=== PATIENT | male | born 1950 | race Caucasian/White ===

== ENCOUNTER 2021-04-07 07:52 | Day surgery (SDC) | payer MEDICARE ==
[~2021-04-07] VITALS: Ht 162.6 cm; Wt 86.2 kg
[2021-04-07] MEDS ORDERED: DEXAMETHASONE SOD PHOSPHATE 4 MG/ML VIAL ONE (08:00)
[2021-04-07] MEDS ORDERED: LIDOCAINE 2%, 20 ML MDV ONE (08:00)
[2021-04-07] MEDS ORDERED: BUPIVACAINE /PF 0.25% 30 ML VIAL INJ ONE (08:00)
[2021-04-07] MEDS ORDERED: IOPAMIDOL 50 ML VIAL IV ONE (08:00)
[2021-04-07] MEDS ORDERED: MIDAZOLAM HCL 2 MG/2 ML VIAL (VERSED) ONE ×2 (08:55→13:31)
[2021-04-07] MEDS ORDERED: DIPHENHYDRAMINE INJ 50 MG/ML VIAL ONE (08:57)
[2021-04-14 15:00] VITALS: BP_SYST 140
== END 2021-04-07 12:00 | disposition home or self-care (01) ==
LOC: SDS 07:52 → SMU 07:53 → SDS 12:00
PROVIDERS: ATTEND Internal Medicine
DX: M51.16 Intervertebral disc disorders with radiculopathy, lumbar region (principal); F32.9 Major depressive disorder, single episode, unspecified; E78.5 Hyperlipidemia, unspecified; G89.4 Chronic pain syndrome; Z79.899 Other long term (current) drug therapy
CPT/HCPCS: 36415; 64483; 87426; J1200; J3465; 76000; J1100; J2001; J3490; Q9967